=== PATIENT | female | born 1960 | race Caucasian/White ===

== ENCOUNTER 2016-09-06 10:14 | Outpatient (CLI) | payer OTHER ==
--- NOTE | 2016-09-06 11:00 | DIAGNOSTIC IMAGING REPORT ---
PROCEDURE: DEXA BONE DENSITY STUDY CLINICAL INDICATION: OSTEOPENIA COMPARISON: None. FINDINGS: LUMBAR SPINE: Bone mineral density 1.037, T-score -0.1, normal Left HIP: Bone mineral density 1.013, T-score 0.6, normal LEFT FEMORAL NECK: Bone mineral density 0.881, T-score 0.3, normal (T score greater or equal to -1.0 to: NORMAL) (T score from -1.1 to -2.4: OSTEOPENIA) (T score ess than or equal to -2.5: OSTEOPOROSIS) IMPRESSION: 1. Normal lumbar spine and left hip bone mineral density
--- NOTE | 2016-09-06 11:15 | DIAGNOSTIC IMAGING REPORT ---
PROCEDURE: XR LUMBAR SPINE 5 VIEWS INDICATION: LOW BACK PAIN,RT SCIATICA TECHNIQUE: Five views. COMPARISON: None. FINDINGS: Grade 1 L4-5 anterolisthesis. No evidence of spondylolysis. Mild L5-S1 disc space narrowing. Mild spur formation. No fracture. Soft tissues are unremarkable. IMPRESSION: 1. Grade 1 L4-5 anterolisthesis 2. Mild degenerative changes and mild L5-S1 disc space narrowing
== END 2016-09-06 23:00 ==
LOC: XR SRH 10:14
DX: M47.816 Spondylosis without myelopathy or radiculopathy, lumbar region (principal); M85.80 Other specified disorders of bone density and structure, unspecified site